=== PATIENT | male | born 1955 | race Caucasian/White ===

== ENCOUNTER 2024-10-09 12:21 | Emergency (ER) | payer SELFPAY ==
[2024-10-09 12:57] VITALS: BP 168/91
[2024-10-09 13:42] LABS: % Basophils 0.8 % (0-2); % Eosinophils 2.3 % (0-6); % Immature Granulocytes 0.3 % (0-0.5); % Lymphocytes 17.3 % (20.5-51.1); % Monocytes 8.9 % (1.7-9.3); % Neutrophils 70.4 % (42.2-75.2); Absolute Basophils 0.1 10^3/uL (0-0.2); Absolute Eosinophils 0.3 10^3/uL (0-0.7); Absolute Lymphocytes 1.9 10^3/uL (1.2-3.4); Absolute Neutrophils 7.7 10^3/uL (1.4-6.5); Hematocrit 48.2 % (39.0-52.0); Hemoglobin 16.3 g/dL (13.0-18.0); Mean Corp Hgb Conc. 33.8 g/dL (33.0-37.0); Mean Corpuscular Hgb 29.9 pg (27.0-31.0); Mean Corpuscular Volume 88.4 fL (80.0-94.0); Mean Platelet Volume 10.5 fL (7.4-10.4); Nucleated Red Blood Cells % 0 % (-); Platelet Count 245 10^3/uL (130-400); Red Blood Cell Count 5.45 10^6/uL (4.70-6.10); Red Cell Dist. Width 11.9 % (11.5-14.5)
[2024-10-09 14:02] LABS: ALT (SGPT) 14 U/L (0-50); AST (SGOT) 16 U/L (17-59); Albumin 4.5 g/dl (3.5-5.0); Alkaline Phosphatase 62 U/L (38-126); Blood Urea Nitrogen 17 mg/dl (9-20); Calcium 9.9 mg/dl (8.4-10.2); Carbon Dioxide 29 mmol/L (22-30); Chloride 101 mmol/L (98-107); Glucose 94 mg/dl (70-99); Potassium 4.6 mmol/L (3.5-5.1); Sodium 138 mmol/L (135-145); Total Bilirubin 0.3 mg/dl (0.2-1.3); eGFR > 60.00
[2024-10-09 14:11] LABS: Troponin I < 0.012 ng/ml
--- NOTE | 2024-10-09 16:41 | ED.GENMED ---
History of Present Illness
General
Chief Complaint: Chest Pain
Source: patient
Time Seen by Provider: 10/09/24 16:28
History of Present Illness
History of Present Illness:
69-year-old male presents to the emergency room complaining generalized malaise and lacking of energy for the past couple days. Patient also states that about a week ago he had some tightness or pressure in his lower chest which lasted for a couple
days. The chest pain has not recurred but he has this lack of energy which is abnormal for him. Patient describes himself as working a full-time job and always active. He denies any fever, chills, cough or shortness of breath. He he has not
observed any weight loss or weight gain. He does not feel he has any edema. Patient had a coronary stent placed in 2018. He is no longer taking aspirin, beta-blockers or any other prescription medication for that matter. Patient does admit to
smoking a pack a day. He is not taking any [id number] medications. He denies alcohol or drug use stating he has been clean for 16 years.
Past History
Past History
ED Past Medical History: CAD, HTN (Borderline hypertension.) and Other (Alcohol abuse, sober since 2008.)
ED Past Surgical History: Cardiac (cath w/ stent 11/29) and Orthopedic
Social History
Tobacco: Smoker
Alcohol: Former (sober since 2008)
Drug: None
Personal:
Living: with family
Employment: Employed
Family History
Family History: Hypertension and CAD (Father); Negative Early CAD
Phy Exam
Physical Exam
Physical Exam:
General: Awake, Alert, Oriented X3. No acute distress.
Vitals: unremarkable
Head: Atraumatic
Eyes: Pupils equal, EOMI
Throat: Airway intact, no exudates
Neck: Trachea midline
Lungs: Clear and equal b/l
Heart: Regular rate, no murmurs
Abd: Soft, Nontender, No pulsatile mass
Neuro: Nonfocal
Skin: Warm, dry, no rash
Extremities: pulses equal b/l, no edema
Scores
Heart Score for Chest Pain Patients
STEMI patient?: No
History: Slightly or Non-Suspicious
ECG: Normal
Age: >45 - <65 years
Risk Factors: >/= 3 Risk Factors or History of CAD
Troponin: </= Normal Limit
Heart Score for Chest Pain Patients: 3
Heart Score Risk: 2.5% MACE over next 6 weeks
Course
Orders/Labs/Results
Orders:
Orders
10/09/24 12:22
Electrocardiogram (*1) Urgent
Reason for Study: Chest Pain
EKG- Treatment ONCE
10/09/24 13:09
Complete Blood Count/With Diff Urgent
Comprehensive Metabolic Panel Urgent
TSH Reflex To Free T4 Urgent
Comment: ADD ON
Troponin I Urgent
10/09/24 16:41
Add On- LAB Urgent
Tests Added?: tsh reflex t4
10/09/24 16:53
COVID-19 Antigen Urgent
Source: Nasal Swab
Influenza A+B Rapid Molecular Urgent
VITA Source: Nasal Swab
Specimen Description:
Abnormal Lab Results
10/09/24
13:09
WBC 11.0 H 10^3/uL
(4.8-10.8)
MPV 10.5 H fL
(7.4-10.4)
Absolute Neuts (auto) 7.7 H 10^3/uL
(1.4-6.5)
Absolute Monos (auto) 1.0 H 10^3/uL
(0.1-0.6)
Lymphocytes % 17.3 L %
(20.5-51.1)
AST 16 L U/L
(17-59)
10/09/24 13:09
01/27/25 13:09
Vital Signs
Initial and Last Documented VS:
Initial Vital Signs
Temp Pulse Resp BP Pulse Ox
98.4 F 63 20 168/91 99
10/09/24 12:57 10/09/24 12:57 10/09/24 12:57 10/09/24 12:57 10/09/24 12:57
Last Documented Vital Signs
Temp Pulse Resp BP Pulse Ox
97.9 F 55 18 148/86 99
10/09/24 16:46 10/09/24 19:00 10/09/24 18:04 10/09/24 19:00 10/09/24 18:04
MDM/Problems Addressed
Differential Diagnosis Includes:
Angina, dehydration, anemia
MDM/Problems Addressed:
Patient presents complaining of chest pain last week and feeling somewhat dizzy and lethargic since then. Troponin is normal, EKG shows no acute ischemic changes. Patient's labs are all unremarkable. Patient is noted to have persistent
hypertension here. He is noncompliant with any of the medications that he was discharged on back when he had his UT. His heart rates running in the low 60s to high 50s. Therefore I will not start a beta-jovan but we will add a prescription for
10 mg of lisinopril once a day. I suspect he may be feeling poorly due to his hypertension. We put him on the chest pain hotline so he gets adequate cardiology follow-up.
*Pulse Oximetry
Patient hypoxic: no
*EKG
Interpreted by ED Provider?: Yes
Interpretation: normal
Heart Rate: 74
Rate: normal
Rhythm: sinus and PAC's
Mcneil: normal axis
Interval: normal interval
QRS Pattern: normal QRS
Ischemia: no ischemia
*[employer] Interpretation
Rate: normal
Interpretation: abnormal
Rhythm: sinus and PAC's
*Critical Care Note
Total Time (30-74mins, 75-104mins- exclusive of procedures): Not Applicable
ED Attending Note
-
Portions of this chart may have been created with voice recognition software.� Occasional wrong word or��sound alike� substitutions may have occurred due to the inherent limitations of voice recognition software.
Discharge Plan
Departure
Patient Disposition: Home (Routine Discharge)
Date of Disposition: 10/09/24
Time of Disposition: 19:23
Patient with high blood pressure during this ER visit?: Yes
Condition: Good
Discharge Problem:
Chest pain, Uncontrolled hypertension
Instructions: Chest Pain DCA Follow Up, BLOOD PRESSURE
Prescriptions:
New
lisinopril 10 mg tablet
10 mg PO DAILY Qty: 30 0RF
No Action
meclizine 25 MG tablet
25 mg PO TIDPRN PRN (Reason: dizziness) Qty: 15 0RF
Referrals:
NONE,* [Active] -
Interventions
Interventions:
*Risk Screen - Suicide Last Done: 10/09/24 12:57
*General Assessment Last Done: 10/09/24 16:49
*Neglect/Abuse Screening Last Done: 10/09/24 16:49
*ED COVID-19 Vaccine History Last Done: 10/09/24 16:49
*Nursing Disposition Last Done: 10/09/24 19:41
ED- Cardiac Assessment Last Done: 10/09/24 16:55
Discharge Date and Time
Discharge Date/Time: 10/09/24 19:42
Print Language: MONTENEGRIN
[2024-10-09 16:46] VITALS: BP 150/89; BMI 26.1
[2024-10-09 17:00] VITALS: BP 153/89
[2024-10-09 17:35] LABS: COVID-19 Antigen Negative (Negative)
[2024-10-09 18:00] VITALS: BP 150/90
[2024-10-09 18:15] LABS: TSH Reflex To Free T4 2.78 uIU/ml (0.47-4.68)
[2024-10-09 19:00] VITALS: BP 148/86
== END 2024-10-09 19:42 | disposition home or self-care (01) ==
LOC: EMR 12:21
PROVIDERS: Student in an Organized Health Care Education/Training Program; EMERGENCY PHYSICIAN Emergency Medicine; FAMILY PHYSICIAN Family Medicine
DX: R07.9 Chest pain, unspecified (principal); I10 Essential (primary) hypertension; I25.10 Atherosclerotic heart disease of native coronary artery without angina pectoris; Z95.5 Presence of coronary angioplasty implant and graft; F17.210 Nicotine dependence, cigarettes, uncomplicated; Z91.148 Patient's other noncompliance with medication regimen for other reason
CPT/HCPCS: 99284; 80053; 84443; 84484; 85025; 87502; 87811; 93005